=== PATIENT | female | born 1985 ===

== ENCOUNTER 2017-05-04 10:54 | Emergency (ER) | payer OTHER, SELFPAY ==
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
--- NOTE | 2017-05-04 11:26 | RAD ---
AP PELVIS: Date: 05/04/17 HISTORY: Emergency exam. COMPARISON: None. FINDINGS: Obturator rings are intact. Pubic symphysis and SI joints are intact. Sacrum appears to be intact. No acute fracture or malalignment is appreciated. Phleboliths in the pelvis. IMPRESSION: No displaced fracture or malalignment. POS: [facility]
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
== END 2017-05-04 11:47 | disposition home or self-care (01) ==
LOC: ERS 10:54
DX: S16.1XXA Strain of muscle, fascia and tendon at neck level, initial encounter (principal); S50.11XA Contusion of right forearm, initial encounter; V49.40XA Driver injured in collision with unspecified motor vehicles in traffic accident, initial encounter
CPT/HCPCS: 71045; 72125; 72170; G0390